=== PATIENT | female | born 1970 | race Two or more races ===

== ENCOUNTER 2016-10-01 18:50 | Emergency (ER) | payer OTHER ==
[2016-10-01 19:07] VITALS: BP 133/84; PULSE 85; TEMP 97.7; BMI 29.1
--- NOTE | 2016-10-01 19:21 | PDOC ---
History of Present Illness - General Chief Complaint: Palpitations Stated Complaint: PALPITATIONS, H/A, LIGHTHEADED, NAUSEA Time Seen by Provider: 10/01/16 19:14 History Source: Patient Exam Limitations: No Limitations - History of Present Illness Initial Comments: 10/01/16 20:39 This is a 46-year-old female who comes in complaining of palpitations, nausea, headache. Patient said she's been under a lot of stress and does have some anxiety issues as well. Patient denies any fevers, chills, shortness of breath, cough, congestion, chest pain. Patient says she does have sinus issues and enlarged tonsils that are chronic. Patient is gone to an ENT to see if she could have her tonsils removed and was told that she does not meet the criteria to have them removed. Patient otherwise takes ibuprofen for her headache and it usually resolves. Patient denies any change in vision, neurological complaints. PAST MEDICAL HISTORY: no significant history PAST SURGICAL HISTORY: no significant history FAMILY HISTORY: no pertinant history SOCIAL HISTORY: Pt lives with family and is employed. MEDICATIONS: reviewed ALLERGIES: As per nursing notes Review of Systems General: No fevers or chills, no weakness, no weight loss HEENT: No change in vision. No sore throat,. No ear pain CardioVascular: No chest pain or shortness of breath Respiratory:No cough, or wheezing. Gastrointestinal: no nausea, vomitting, diarrhea or constipation, No rectal bleeding Genitourinary: No dysuria, hematuria, or frequency Musculoskeletal: No joint or muscle pain or swelling Neurologic: No headache, vertigo, dizziness or loss of consciousness Psychiatric: nor depression Skin: No rashes or easy bruising Endocrine: no increased thirst or abnormal weight change Allergic: no skin or latex allergy All other systems reviewed and normal Exam: General: Well-nourished well-developed individual, no acute distress HEENT: Throat: Normal, tonsils are moderately enlarged right tonsil rate or than left. There is no erythema or exudate. Neck: Supple, no meningeal signs, no lymphadenopathy, thyroid is normal to exam. Eyes::Pupils equal reactive and round, extraocular motion intact Chest: Nontender to palpation Cardiac: S1-S2 normal, regular rate and rhythm, no murmurs rubs or gallops Respiratory: Lungs clear to auscultation bilateral Abdomen: Soft, nondistended, normal bowel sounds, nontender to palpation diffusely Extremities: Warm, dry, no cyanosis, clubbing, or edema Skin: No rashes Neuro: Alert and oriented x3, nonfocal exam, grossly intact, normal gait Psych: Normal mood and affect EKG normal sinus rhythm at a rate of 76, no acute ST-T wave changes, normal intervals, Assessment and plan: This is a 46-year-old female comes in complaining of some vague complaints of nausea, intermittent headaches and palpitations. Patient said she's been under a lot of stress recently and does have a borderline history of some anxiety issues. Patient had a workup and exam here in the emergency room. Patient's CBC was normal she was not anemic there is no white count or left shift. Patient's chemistries are also normal with the exception of TSH is still pending. Patient was told that if the TSH comes back abnormal we will call her and let her know otherwise call tomorrow morning for the final result. Patient's EKG was normal Patient does have a primary care doctor and was given referral to an ENT that she can follow-up with as her tonsils worse moderately enlarged and she does have some sinus/congestion issues. Past History - Past Medical History Allergies/Adverse Reactions: Allergies Allergy/AdvReac Type Severity Reaction Status Date / Time No Known Allergies Allergy Verified 10/01/16 18:58 Home Medications: Ambulatory Orders Famotidine [Pepcid] 20 mg PO PRN PRN 10/01/16 GI Disorders: Yes (REFLUX) - Psycho/Social/Smoking Cessation Hx Anxiety: No Suicidal Ideation: No Smoking Status: No Smoking History: Never smoked Have you smoked in the past 12 months: No Number of Cigarettes Smoked Daily: 0 Hx Alcohol Use: No Drug/Substance Use Hx: No Substance Use Type: None *Physical Exam - Vital Signs Last Vital Signs Temp Pulse Resp BP Pulse Ox 97.7 F 85 16 133/84 100 10/01/16 18:55 10/01/16 18:55 10/01/16 18:55 10/01/16 18:55 10/01/16 18:55 ED Treatment Course - LABORATORY CBC & Chemistry Diagram: 10/01/16 19:50 10/01/16 19:50 *DC/Admit/Observation/Transfer Diagnosis at time of Disposition: Palpitations - Discharge Dispostion Disposition: HOME Condition at time of disposition: Good - Patient Instructions Additional Instructions: Next time he feel that you are having palpitations check your heart beat and if it is less than 100 most likely the palpitations are secondary to some stress or anxiety in your life. Follow-up with an ENT call Dr. cate Rod at for an appointment. Your TSH level not be back for a couple more hours so if it is abnormal we will call you with the result. Otherwise call in the morning for the final result. Return to the emergency department immediately with ANY new, persistent or worsening symptoms. Continue any medications as previously prescribed by your physician. You should follow up with your primary doctor as soon as possible regarding today's emergency department visit. . Please make sure your doctor reviews the results of your emergency evaluation. Thank you for coming to the Emergency Department today for your care. It was a pleasure to see you today. Please note that your evaluation is INCOMPLETE until you follow-up with your doctor.
[2016-10-01 20:02] LABS: PH,URINE 5.5 (4.5-8); URINE APPEARANCE Clear; URINE BILIRUBIN Negative (NEGATIVE); URINE BLOOD Negative (NEGATIVE); URINE COLOR YELLOW; URINE GLUCOSE (UA) Negative (NEGATIVE); URINE KETONE Negative (NEGATIVE); URINE LEUK ESTERASE Trace (NEGATIVE); URINE NITRITE Negative (NEGATIVE); URINE PROTEIN Negative (NEGATIVE); URINE UROBILINOGEN 0.2 E.U/dl (0.2-1.0)
[2016-10-01 20:06] LABS: BASOPHIL 1.6 % (0-2.0); EOSINOPHIL 2.8 % (0-4.5); MCH 27.9 pg (25.7-33.7); MCHC 33.6 g/dl (32.0-36.0); MEAN CELL VOLUME 83.1 fl (80-96); MEAN PLT VOLUME 7.7 fl (7.5-11.1); NEUTROPHILS 62.1 % (42.8-82.8); PLATELET COUNT 362 K/MM3 (134-434); RDW 13.7 % (11.6-15.6); WHITE BLOOD COUNT 9.3 K/mm3 (4.0-10.0)
[2016-10-01 20:20] LABS: ALBUMIN 4.3 g/dl (3.5-5.0); ALK PHOS 64 U/L (32-92); ANION GAP 12 (8-16); BILIRUBIN,TOTAL 0.5 mg/dl (0.2-1.0); CALCIUM 9.3 mg/dl (8.4-10.2); CO2 26 mmol/L (22-28); CPK(DFH) 54 IU/L (26-140); CREATININE 0.8 mg/dl (0.6-1.3); GLUCOSE,RANDOM 122 mg/dl (74-106); SGOT/AST 17 U/L (10-42); SGPT/ALT 20 U/L (10-40); TOT PROT 7.2 g/dl (6.4-8.3)
[2016-10-01 20:36] LABS: TROPONIN I (DFP) < 0.03 ng/ml (0.03-0.50)
[2016-10-01] MEDS ORDERED: IBUPROFEN 600 MG TABLET (FP) PO ONE ×2 (20:40→20:45)
[2016-10-01 21:43] LABS: THYROID STIMULATING HORMONE 1.84 uIU/ml (0.358-3.74)
--- NOTE | 2016-10-02 15:54 | EKG ---
Test Reason : Blood Pressure : / mmHG Vent. Rate : 076 BPM Atrial Rate : 076 BPM P-R Int : 136 ms QRS Dur : 062 ms QT Int : 392 ms P-R-T Axes : 070 004 008 degrees QTc Int : 441 ms POOR DATA QUALITY, INTERPRETATION MAY BE ADVERSELY AFFECTED NORMAL SINUS RHYTHM MINIMAL VOLTAGE CRITERIA FOR LVH, MAY BE NORMAL VARIANT NO PREVIOUS ECGS AVAILABLE Confirmed by MD MARSHALL, RICO ([id number]) on 10/02/2016 3:53:36 PM Referred By: MERLENE Confirmed By:RICO OLIVARES MD
== END 2016-10-01 21:04 | disposition home or self-care (01) ==
LOC: FER 18:50
DX: R00.2 Palpitations (principal); K21.9 Gastro-esophageal reflux disease without esophagitis
CPT/HCPCS: 36415; 80053; 81003; 82550; 84443; 84484; 85025; 93005; 99283-25

== ENCOUNTER 2017-02-09 08:42 | Emergency (ER) | payer OTHER ==
--- NOTE | 2017-02-09 08:53 | PDOC ---
History of Present Illness - General Stated Complaint: RASH Time Seen by Provider: 02/09/17 08:49 History Source: Patient Exam Limitations: No Limitations - History of Present Illness Initial Comments: 02/09/17 08:56 46-year-old female with no past medical history presents with urticaria. Since yesterday. The patient states that she recently vacationed from [place] and [place]. Had no rash at that time. However, patient did buy new clothes from there and has been wearing them and noted urticaria as itchy. Denies no new soaps or shampoos or lotions. Denies airway or breathing difficulties. Did not take any medications as she is fasting for . Past History - Past Medical History Allergies/Adverse Reactions: Allergies Allergy/AdvReac Type Severity Reaction Status Date / Time No Known Allergies Allergy Verified 10/01/16 18:58 Home Medications: Ambulatory Orders Famotidine [Pepcid] 20 mg PO PRN PRN 10/01/16 Ibuprofen [Motrin -] 600 mg PO TID #21 tablet 10/01/16 Diphenhydramine HCl [Benadryl -] 25 mg PO Q6H PRN #28 capsule 02/09/17 Prednisone [Deltasone] 40 mg PO DAILY #10 tablet 02/09/17 GI Disorders: Yes (REFLUX) - Psycho/Social/Smoking Cessation Hx Anxiety: No Suicidal Ideation: No Smoking Status: No Smoking History: Never smoked Have you smoked in the past 12 months: No Number of Cigarettes Smoked Daily: 0 Hx Alcohol Use: No Drug/Substance Use Hx: No Substance Use Type: None Review of Systems - Review of Systems Able to Perform ROS?: Yes Comments:: 02/09/17 08:57 GENERAL/CONSTITUTIONAL: No fever, weakness. HEAD, EYES, EARS, NOSE AND THROAT: No change in vision. No ear pain or discharge. No sore throat. CARDIOVASCULAR: No chest pain or shortness of breath. RESPIRATORY: No cough, wheezing, or hemoptysis. GASTROINTESTINAL: No abdominal pain, nausea, vomiting, diarrhea, or decreased PO intolerance. GENITOURINARY: No dysuria, frequency, or change in urination. MUSCULOSKELETAL: No joint or muscle swelling or pain. No neck or back pain. SKIN: +urticaria NEUROLOGIC: No headache, vertigo, loss of consciousness, or change in strength/ sensation. ENDOCRINE: No increased thirst. No abnormal weight change. HEMATOLOGIC/LYMPHATIC: No anemia, easy bleeding, or history of blood clots. ALLERGIC/IMMUNOLOGIC: No hives or skin allergy. *Physical Exam - Physical Exam Comments: 02/09/17 08:57 GENERAL: Awake, alert, and fully oriented, in no acute distress. HEAD: No signs of trauma EYES: PERRLA, EOMI, sclera anicteric, conjunctiva clear ENT: Auricles normal inspection, hearing grossly normal, nares patent, oropharynx clear without exudates. NECK: Normal ROM, supple, no lymphadenopathy, JVD, or masses LUNGS: Breath sounds equal, clear to auscultation bilaterally. No wheezes, and no crackles HEART: Regular rate and rhythm, normal S1 and S2, no murmurs, rubs or gallops ABDOMEN: Soft, nontender, normoactive bowel sounds. No guarding, no rebound. No masses EXTREMITIES: Normal range of motion, no edema. No clubbing or cyanosis. No cords, erythema, or tenderness NEUROLOGICAL: Cranial nerves II through XII grossly intact. Normal speech, normal gait SKIN: Warm, Dry, normal turgor. +Urticaria right anterior wong and bilateral elbows on extensors. no erythema Medical Decision Making - Medical Decision Making 02/09/17 08:58 This is urticaria. There is no evidence of anaphylaxis. We'll write Benadryl and hurt his own and have patient follow with an manager motor. Patient declines take medications now as she is fasting but will take it at night. I discussed the physical exam findings, ancillary test results and final diagnoses with the patient. I answered all of the patient's questions. The patient was satisfied with the care received and felt comfortable with the discharge plan and treatment plan. The patient will call their primary care physician within 24 hours to arrange follow-up and will return to the Emergency Department with any new, persistant or worsening symptoms. *DC/Admit/Observation/Transfer Diagnosis at time of Disposition: Urticaria - Discharge Dispostion Disposition: HOME Condition at time of disposition: Stable Admit: No - Prescriptions Prescriptions: Diphenhydramine HCl [Benadryl -] 25 mg PO Q6H PRN #28 capsule PRN Reason: Itching/Rash Prednisone [Deltasone] 40 mg PO DAILY #10 tablet - Referrals Referrals: Leonard Higgins MD [Staff Physician] - - Patient Instructions Printed Discharge Instructions: DI for Hives, Urticaria (Alternative Therapy) Additional Instructions: Take 25 mg benadryl every 6 hours as needed for rash/itching. Please take 40 mg prednisone (steroids) daily for the next 5 days. Please make an appointment with an manager motor.
[2017-02-09 09:04] VITALS: BP 116/85; PULSE 84; TEMP 99.1; BMI 29.1
== END 2017-02-09 09:05 | disposition home or self-care (01) ==
LOC: FER 08:42
DX: L50.9 Urticaria, unspecified (principal); K21.9 Gastro-esophageal reflux disease without esophagitis
CPT/HCPCS: 99281-25

== ENCOUNTER 2019-05-08 09:20 | Emergency (ER) | payer OTHER | END 2019-05-08 11:05 | disposition home or self-care (01) | LOC: FER 09:20 ==

== ENCOUNTER 2021-12-02 04:50 | Day surgery (SDC) | payer OTHER ==
[2021-12-02 08:29] VITALS: BMI 29.8
[2021-12-02 09:17] VITALS: TEMP 97.8
[2021-12-02 10:25] VITALS: BP 130/79; PULSE 70
== END 2021-12-02 10:07 | disposition home or self-care (01) ==
LOC: JASU-ENDO 04:50
PROVIDERS: ATTEND Internal Medicine Gastroenterology
PROC: 0DB78ZX Excision of Stomach, Pylorus, Via Natural or Artificial Opening Endoscopic, Diagnostic (ICD-10-PCS; 2021-12-02)
PROC: 0DB68ZX Excision of Stomach, Via Natural or Artificial Opening Endoscopic, Diagnostic (ICD-10-PCS; 2021-12-02)
PROC: 0DB98ZX Excision of Duodenum, Via Natural or Artificial Opening Endoscopic, Diagnostic (ICD-10-PCS; principal; 2021-12-02 08:45)
DX: K29.50 Unspecified chronic gastritis without bleeding (principal); K29.80 Duodenitis without bleeding; B96.81 Helicobacter pylori [H. pylori] as the cause of diseases classified elsewhere
CPT/HCPCS: 81025; 88305-TC; 88342-TC

== ENCOUNTER 2021-12-16 04:42 | Day surgery (SDC) | payer OTHER ==
[2021-12-11 16:29] VITALS: BMI 32.8
[2021-12-16 10:18] VITALS: TEMP 98
[2021-12-16 10:53] VITALS: BP 106/65; PULSE 60
== END 2021-12-16 11:00 | disposition home or self-care (01) ==
LOC: JASU-ENDO 04:42
PROVIDERS: ATTEND Internal Medicine Gastroenterology
PROC: 0DBC8ZX Excision of Ileocecal Valve, Via Natural or Artificial Opening Endoscopic, Diagnostic (ICD-10-PCS; principal; 2021-12-16 09:15)
DX: Z12.11 Encounter for screening for malignant neoplasm of colon (principal); K57.30 Diverticulosis of large intestine without perforation or abscess without bleeding; K64.8 Other hemorrhoids; K63.3 Ulcer of intestine
CPT/HCPCS: 81025; 88305-TC

== ENCOUNTER → 2022-01-14 | Day surgery (SDC) | payer OTHER | END | disposition home or self-care (01) | LOC: JRADUS-SUR 10:07 | PROVIDERS: ATTEND Internal Medicine | PROC: BH40ZZZ Ultrasonography of Right Breast (ICD-10-PCS; principal; 2022-01-14) | PROC: 0H95XZX Drainage of Chest Skin, External Approach, Diagnostic (ICD-10-PCS; 2022-01-14) | DX: N60.01 Solitary cyst of right breast (principal) | CPT/HCPCS: 19000; 19001; 76942-TC; 87899; 88173; 88305-TC ==

== ENCOUNTER 2022-02-07 18:03 | Emergency (ER) | payer OTHER ==
[2022-02-07 18:27] VITALS: BP 119/74; PULSE 87; TEMP 99; BMI 31.9
== END 2022-02-07 19:10 | disposition home or self-care (01) ==
LOC: FER 18:03
DX: R05.9 Cough, unspecified (principal)
CPT/HCPCS: 99283-25; C9803-CS; U0003; U0005

== ENCOUNTER 2022-02-23 21:30 | Emergency (ER) | payer OTHER ==
[2022-02-23 21:37] VITALS: BP 133/97; PULSE 98; TEMP 98; BMI 31.4
[2022-02-23] MEDS ORDERED: SILVER SULFADIAZINE 1% TOP CREAM 50 GM JAR TP ONE ×2 (21:47→21:55)
== END 2022-02-23 21:58 | disposition home or self-care (01) ==
LOC: FER 21:30
DX: T24.212A Burn of second degree of left thigh, initial encounter (principal); W39.XXXA Discharge of firework, initial encounter
CPT/HCPCS: 99283-25

== ENCOUNTER 2022-07-25 21:40 | Observation (INO) | payer OTHER ==
[2022-07-25 22:18] LABS: HEMATOCRIT 38.9 % (32.4-45.2); HEMOGLOBIN 12.9 G/dL (10.7-15.3); MCH 28.1 pg (25.7-33.7); MCHC 33.1 g/dl (32.0-36.0); MEAN CELL VOLUME 84.7 fl (80-96); MEAN PLT VOLUME 7.4 fl (7.5-11.1); RBC 4.59 10^6/uL (3.60-5.2); WHITE BLOOD COUNT 12.5 10^3/uL (4.0-10.8)
[2022-07-25 22:31] LABS: INR 1.04 (0.83-1.09)
[2022-07-25 22:38] LABS: ALBUMIN 4.3 g/dl (3.4-5.0); BILIRUBIN,TOTAL 0.6 mg/dl (0.2-1); CALCIUM 9.3 mg/dl (8.5-10); CREATININE 0.8 mg/dl (0.55-1.3); TOT PROT 7.5 g/dl (6.4-8.2)
[2022-07-26 06:01] VITALS: BMI 31.9
[2022-07-26 08:18] LABS: HEMOGLOBIN 12.2 G/dL (10.7-15.3); MCH 27.7 pg (25.7-33.7); MCHC 32.9 g/dl (32.0-36.0); MEAN CELL VOLUME 84.1 fl (80-96); MEAN PLT VOLUME 7.6 fl (7.5-11.1); PLATELET COUNT 348.7 10^3/uL (134-434); RDW 15.1 % (11.6-15.6); WHITE BLOOD COUNT 10.2 10^3/uL (4.0-10.8)
[2022-07-26 08:25] LABS: ALBUMIN 3.9 g/dl (3.4-5.0); BILIRUBIN,TOTAL 0.5 mg/dl (0.2-1); CALCIUM 8.8 mg/dl (8.5-10); CREATININE 0.8 mg/dl (0.55-1.3); TOT PROT 6.8 g/dl (6.4-8.2)
[2022-07-26 09:03] VITALS: RESP 18
[2022-07-26] MEDS ORDERED: FAMOTIDINE 20 MG TABLET PO SCH (10:00)
[2022-07-26] MEDS ORDERED: MULTIVITAMINS (DAILY MVI) TABLET (FP) PO SCH (10:00)
[2022-07-26] MEDS ORDERED: ASPIRIN 81 MG CHEWABLE TABLETS PO ONE (10:08)
[2022-07-26] MEDS ORDERED: ATORVASTATIN CA 80 MG TABLET (FP) PO ONE (10:08)
[2022-07-26] MEDS ORDERED: LORazepam 2 MG/ML SDV VIAL IVPUSH ONE (11:15)
[2022-07-26 12:35] LABS: PLATELET ESTIMATE ADEQUATE
[2022-07-26 14:07] VITALS: BP 120/75; PULSE 78; TEMP 98.4
[2022-07-26 14:43] LABS: COCAINE, UR NEGATIVE (NEGATIVE); METHADONE, UR NEGATIVE (NEGATIVE); PHENCYCLIDINE,URINE NEGATIVE (NEGATIVE)
[2022-07-26 14:44] LABS: OPIATES, URI NEGATIVE (NEGATIVE); URINE AMPHETAMINES NEGATIVE (NEGATIVE); URINE BARBITURATES NEGATIVE (NEGATIVE)
[2022-07-26 14:47] LABS: URINE BENZODIAZEPINES NEGATIVE (NEGATIVE)
== END 2022-07-26 14:45 | disposition home or self-care (01) ==
LOC: FER 21:40 → FM/S 07-26 02:43
PROVIDERS: ADMIT Internal Medicine
PROC: 3E033NZ Introduction of Analgesics, Hypnotics, Sedatives into Peripheral Vein, Percutaneous Approach (ICD-10-PCS; principal; 2022-07-26)
DX: G45.9 Transient cerebral ischemic attack, unspecified (principal); K21.9 Gastro-esophageal reflux disease without esophagitis; Z20.822 Contact with and (suspected) exposure to COVID-19; E66.8 Other obesity; Z68.31 Body mass index [BMI] 31.0-31.9, adult
CPT/HCPCS: 0241U-QW; 36415; 70450-TC; 70551-TC; 71045-TC-FY; 80053; 80061; 80307; 83036; 85027; 85610; 93005; 96374; 99285-25; G0378

== ENCOUNTER 2023-08-09 20:07 | Emergency (ER) | payer OTHER ==
[2023-08-09 20:13] VITALS: BP 139/95; PULSE 108; RESP 18; TEMP 99; BMI 30.4
== END 2023-08-09 20:25 | disposition home or self-care (01) ==
LOC: FER 20:07
DX: R50.9 Fever, unspecified (principal); R51.9 Headache, unspecified; M79.10 Myalgia, unspecified site; J06.9 Acute upper respiratory infection, unspecified; B97.89 Other viral agents as the cause of diseases classified elsewhere; Z20.822 Contact with and (suspected) exposure to COVID-19
CPT/HCPCS: 0241U-QW; 99283-25

== ENCOUNTER 2023-10-21 09:12 | Emergency (ER) | payer OTHER ==
[2023-10-21 09:21] VITALS: BP 140/89; RESP 16; TEMP 100.3; BMI 30.7
[2023-10-21] MEDS ORDERED: IBUPROFEN 600 MG TABLET (FP) PO ONE (09:43)
[2023-10-21] MEDS: IBUPROFEN 600 MG TABLET (FP) PO ONE (09:44)
[2023-10-21 10:44] LABS: HEMATOCRIT 35.3 % (32.4-45.2); HEMOGLOBIN 11.8 G/dL (10.7-15.3); MCH 27.9 pg (25.7-33.7); MCHC 33.3 g/dl (32.0-36.0); MEAN CELL VOLUME 83.8 fl (80-96); MEAN PLT VOLUME 7.6 fl (7.5-11.1); PLATELET COUNT 340.1 10^3/uL (134-434); RBC 4.21 10^6/uL (3.60-5.2); WHITE BLOOD COUNT 17.3 10^3/uL (4.0-10.8)
[2023-10-21 10:53] LABS: ALBUMIN 4.2 g/dl (3.4-5.0); BILIRUBIN,TOTAL 0.8 mg/dl (0.2-1); CALCIUM 8.9 mg/dl (8.5-10.1); CREATININE 0.8 mg/dl (0.6-1.3); POTASSIUM 3.8 mmol/L (3.5-5.1); TOT PROT 6.9 g/dl (6.4-8.2)
[2023-10-21 11:01] LABS: PLATELET ESTIMATE ADEQUATE
[2023-10-21] MEDS: SODIUM CHLORIDE 0.9% 500 ML INFUS.BAG IV ONE (11:10)
[2023-10-21] MEDS ORDERED: ACETAMINOPHEN INJECTION 100 ML IVPB ONE (11:28)
[2023-10-21] MEDS: ACETAMINOPHEN 1000 MG/100 ML BAG IVPB ONE (11:30)
[2023-10-21 11:36] VITALS: PULSE 116
[2023-10-21] MEDS ORDERED: DOXYCYCLINE HYCLATE 100 MG CAPSULE PO ONE (12:26)
[2023-10-21] MEDS: DOXYCYCLINE HYCLATE 100 MG CAPSULE PO ONE (12:30)
== END 2023-10-21 12:40 | disposition home or self-care (01) ==
LOC: FER 09:12
PROC: 3E033NZ Introduction of Analgesics, Hypnotics, Sedatives into Peripheral Vein, Percutaneous Approach (ICD-10-PCS; principal; 2023-10-21)
DX: R50.9 Fever, unspecified (principal); M79.10 Myalgia, unspecified site; R10.30 Lower abdominal pain, unspecified; R51.9 Headache, unspecified; R00.0 Tachycardia, unspecified; J18.9 Pneumonia, unspecified organism; Z20.822 Contact with and (suspected) exposure to COVID-19
CPT/HCPCS: 0241U-QW; 36415; 71046-TC-FY; 80053; 81003; 81015; 84439; 84443; 85025; 87040; 87086; 99284-25; J0131

== ENCOUNTER 2024-12-21 07:32 | Day surgery (SDC) | payer OTHER ==
[2024-12-14 12:49] VITALS: BMI 31.9
[2024-12-21 11:08] VITALS: TEMP 98.6
[2024-12-21 11:41] VITALS: BP 130/74; PULSE 66; RESP 19
[2024-12-21 13:23] LABS: HCV DIAGNOSTIC IN-HOUSE W/RFLX NON-REACTIVE (NONREACTIVE)
[2024-12-21 13:47] LABS: HEPATITIS B SURF AG NON-MATERN NON-REACTIVE (NONREACTIVE)
== END 2024-12-21 12:00 | disposition home or self-care (01) ==
LOC: JASU-ENDO 07:32
PROVIDERS: ATTEND Internal Medicine Gastroenterology
PROC: 0DBB8ZX Excision of Ileum, Via Natural or Artificial Opening Endoscopic, Diagnostic (ICD-10-PCS; principal; 2024-12-21 10:45)
DX: K50.00 Crohn's disease of small intestine without complications (principal); K63.3 Ulcer of intestine; K64.8 Other hemorrhoids; R93.3 Abnormal findings on diagnostic imaging of other parts of digestive tract
CPT/HCPCS: 36415; 81025; 86140; 86256; 86480; 86671; 86704; 86803; 87340; 87517; 88305-TC